=== PATIENT | female | born 1975 | race Caucasian/White ===

== ENCOUNTER → 2017-12-25 | Outpatient (CLI) | payer OTHER ==
[2017-12-25 14:09] LABS: BASO % 0.8 %; BASO ABS # 0.04 K/uL (0-0.2); EOS % 1.5 %; EOS ABS # 0.08 K/uL (0-0.5); HEMATOCRIT 45.7 % (37-47); HEMOGLOBIN 15.5 g/dL (12.0-16.0); IG# 0.02 K/uL (0.00-0.02); LYMPH % 34.6 %; LYMPH ABS # 1.84 K/uL (1.2-3.4); MEAN CELL VOLUME 90.7 fL (80-100); MEAN CORPUSCULAR HEMOGLOBIN 30.8 pg (25-34); MEAN CORPUSCULAR HGB CONC 33.9 g/dl (32-36); MEAN PLATELET VOLUME 11.3 fL (7.4-10.4); MONO % 9.6 %; MONO ABS # 0.51 K/uL (0.11-0.59); NEUT % 53.1 %; NEUT ABS # 2.83 K/uL (1.4-6.5); PLATELET COUNT 297 K/uL (130-400); RED CELL DISTRIBUTION WIDTH CV 12.9 % (11.5-14.5); RED CELL DISTRIBUTION WIDTH SD 42.8 fL (36.4-46.3); WHITE BLOOD COUNT 5.32 K/uL (4.8-10.8)
[2017-12-25 14:25] LABS: BLOOD UREA NITROGEN 18 mg/dl (7-18); CALCIUM 8.8 mg/dl (8.5-10.1); CARBON DIOXIDE 30 mmol/L (21-32); CREATININE 0.97 mg/dl (0.60-1.20); GLUCOSE 79 mg/dl (70-99); POTASSIUM 3.5 mmol/L (3.5-5.1); SODIUM 136 mmol/L (136-145)
== END | disposition home or self-care (01) ==
LOC: C.LABBC 09:37
PROVIDERS: ATTEND Orthopaedic Surgery
DX: Z01.812 Encounter for preprocedural laboratory examination (principal); M75.51 Bursitis of right shoulder

== ENCOUNTER → 2018-01-23 | Day surgery (SDC) | payer OTHER ==
[2018-01-06 07:47] VITALS: Ht 160 cm; Wt 76.4 kg
[~2018-01-23] VITALS: Ht 160 cm; Wt 76.4 kg
[~2018-01-23] MED LIST: ATROPINE SULFATE 0.1 MG/ML 5ML SYR IV PRN; BUPIVACAINE 0.25% 30 ML VIAL ONE; CEFAZOLIN 2000MG IV PUSH 15 ML IV SCH; CITA20TA9 PO; CYCL1SOL OPR; DEXAMETHASONE SOD INJ 4 MG/ML VIAL ONE; DIPH25CA65 PO; EpINEphrine INJ 1MG/ML AMP 1 MG/ML AMP ONE; FENTANYL CITRATE INJ 50 MCG/1 ML 2 ML VIAL IV PRN; FENTANYL CITRATE INJ 50 MCG/1 ML 2 ML VIAL ONE; HYDR-5688 PO; HYDR200T5 PO; HYDROCODONE/ACETAMIN 5/325MG TAB PO PRN; KETO10TA PO; KETOROLAC TROMETHAMINE 30 MG/ML VIAL IV. PRN; LACTATED RINGER'S 1000ML 1,000 ML IV SCH; LIDOCAINE HCL 2% 2 ML VIAL (20MG/ML) ONE; MIDAZOLAM HCL 1 MG/ML 2ML VIAL ONE; MISCCAP80 PO; MTR600X PO; ONDANSETRON INJ 2 MG/ML 2 ML VIAL IV PRN; ONDANSETRON INJ 2 MG/ML 2 ML VIAL ONE; PHENYLEPHRINE HCL INJ 10 MG/ML VIAL ONE; PRED1SUS3 OPL; PRED1SUS3 OPR; PROPOFOL IV EMULSION 10 MG/ML 20 ML VIAL ONE; ROPIVACAINE 0.5% 5 MG/ML 30 ML VIAL ONE; SODIUM CHLORIDE 0.9% 1000ML 1,000 ML IV SCH; THYROID SUPPORT PO; [UNRECOGNIZED DRUG - OTHER] PO
--- NOTE | 2018-01-23 07:50 | History & Physical Bridge - [place] ---
H&P Re-Evaluation Bridge Note: I have examined the patient, reviewed the History & Physical and in the interval since the performance of the History & Physical I have noted the following changes of clinical significance: No changes noted
--- NOTE | 2018-01-23 10:54 | [facility] Post Operative Brief Note ---
Immediate Operative Summary Operative Date January 23, 2018. Pre-Operative Diagnosis Right Shoulder Bursitis, Joint Pain Post-Operative Diagnosis Same with Rotator Cuff Tear Procedure(s) Performed Right Shoulder Arthroscopy With Distal Clavicle Resection, Rotator Cuff Repair, Acromioplasty Surgeon Dr. Wade Physician Relations Specialist Surgeon(s) Guicho Patricia PA-C Estimated Blood Loss 5 ml Findings Consistent with Post-Op Diagnosis Specimens None Anesthesia Type General Regional Complication(s) none Disposition Disposition: Recovery Room / PACU
--- NOTE | 2018-01-23 11:00 | Discharge Instructions-SurgCtr ---
Discharge Instructions Date of Service January 23, 2018. Visit Reason for Visit: Right Shoulder Bursitis, Joint Pain Discharge Discharge Diagnosis / Problem: SAME ABOVE Discharge Goals Goal(s): Decrease discomfort, Improve function Medications Stopped Medications Name(s): no blood thinners Restart Stopped Medication(s): MAY RESTART 01/24/2018 Activity Recommendations Activity Limitations: as noted below Lifting Limitations: until after follow-up appointment Exercise/Sports Limitations: until after follow-up appointment Shower/Bathe: tomorrow Anesthesia . Post Anesthesia Instructions: If you have had General Anesthesia or IV Sedation: * Do not drive today. * Resume driving when surgeon permits. * Do not make important decisions or sign legal documents today. * Call surgeon for: 1. Temperature elevations greater than 101 degrees F. 2. Uncontrollable pain. 3. Excessive bleeding. 4. Persistent nausea and vomiting. 5. Medication intolerance (nausea, vomiting or rash). * For nausea and vomiting use only clear liquids such as: tea, soda, bouillon until nausea subsides, then gradually increase diet as tolerated. * If you have any concerns or questions, call your surgeon's office. If physician is unavailable and it is an emergency, call 911 or go to the nearest emergency room. . Instructions / Follow-Up Instructions / Follow-Up MEDICATIONS: * Resume previous medications unless instructed otherwise by your surgeon. * Always take pain medication on a full stomach or with food to avoid upset stomach. * Do not drink alcohol or drive while taking narcotics. * Ibuprofen or Tylenol may be taken if narcotic not needed. SPECIAL CARE INSTRUCTIONS: __ None _X_ Keep extremity elevated and iced x 48 hours; apply ice 20-30 minutes 8-10 times/day. May remove at night. __ Sling __24 hrs/day __ Remove at night _X_ Shoulder Immobilizer (MAY REMOVE AFTER 48 HOURS ONLY TO SHOWER AND FOR THERAPY) _X_ 24 hrs/day __ Remove at night _X_ Dressing __ Maintain until seen in office, may shower with plastic over site _X_ Remove dressings in 24-48 hours and then may shower _X_ Cover incisions with band-aids after showering __ Do not remove steri-strips Call physician if chills or temperature rises above 102 degrees or pain unrelieved by prescribed pain medications at . . Diet Recommendations Home Diet: no limitations Fluid Restriction: None Procedures Procedures Performed: Right Shoulder Arthroscopy With Distal Clavicle Resection, Rotator Cuff Repair, Acromioplasty Pending Studies Studies pending at discharge: no Work Instructions Return To Work: after follow-up Medical Emergencies . Who to Call and When: Medical Emergencies: If at any time you feel your situation is an emergency, please call 911 immediately. . Non-Emergent Contact Non-Emergency issues call your: Primary Care Provider Call Non-Emergent contact if: you have a fever, temperature is above 101.5 . . "Provider Documentation" section prepared by Rex Patricia. .
[2018-01-23 11:51] VITALS: TEMP 36.6
--- NOTE | 2018-01-23 12:06 | Anesthesia Progress Nt - [facility] ---
Anesthesia Post Op Note Date & Time January 23, 2018 at 12:06 Vital Signs Pain Intensity: 0 Vital Signs Past 12 Hours Date Time Temp Pulse Resp B/P (MAP) Pulse Ox O2 Delivery O2 Flow Rate FiO2 01/23/18 11:51 36.6 93 18 122/80 (94) 99 Room Air 01/23/18 11:28 91 17 99 01/23/18 11:28 91 17 01/23/18 11:25 118/77 01/23/18 11:23 89 13 97 01/23/18 11:23 87 13 01/23/18 11:22 93 21 01/23/18 11:22 91 21 98 01/23/18 11:21 124/75 01/23/18 11:20 36.6 89 16 124/75 98 Room Air 01/23/18 11:18 89 16 98 01/23/18 11:18 88 16 01/23/18 11:15 117/64 01/23/18 11:13 91 19 01/23/18 11:13 89 19 98 01/23/18 11:10 123/78 01/23/18 11:08 87 14 01/23/18 11:08 87 14 100 01/23/18 11:05 112/75 01/23/18 11:03 89 12 100 01/23/18 11:03 89 12 01/23/18 11:00 122/103 01/23/18 10:58 92 116/73 99 01/23/18 10:58 92 01/23/18 10:58 37.2 92 16 116/73 100 Mask 7 01/23/18 09:34 76 16 126/74 (91) 99 Mask 4 01/23/18 08:02 37.0 80 16 110/73 (85) 97 Room Air Notes Mental Status: alert / awake / arousable, participated in evaluation Pt Amnestic to Procedure: Yes Nausea / Vomiting: adequately controlled Pain: adequately controlled Airway Patency, RR, SpO2: stable & adequate BP & HR: stable & adequate Hydration State: stable & adequate Anesthetic Complications: no major complications apparent
[2018-01-23 12:07] VITALS: BP 110/78; PULSE 93; O2SAT 98
--- NOTE | 2018-01-23 13:43 | OPERATIVE REPORT ---
DATE OF OPERATION: 01/23/2018 PREOPERATIVE DIAGNOSES: External impingement and acromioclavicular joint arthritis of the right shoulder. POSTOPERATIVE DIAGNOSES: External impingement, acromioclavicular joint arthritis, and medium size rotator cuff tear. PROCEDURE: Right shoulder diagnostic arthroscopy with limited debridement, distal clavicle resection, acromioplasty, and medium size rotator cuff repair. SURGEON: Dr. Pal Wade. ABSORBER OPERATOR: Rex Patricia PA-C, whose assistance was necessary for positioning the arm and help with arthroscopic instrumentation and closure. ANESTHESIA: General with a right interscalene nerve block. COMPLICATIONS: None. CONDITION: Stable to PACU. INDICATIONS: Ольга is a pleasant 42-year-old female who works for the [email or web address]. She has been having a 3-month history of right shoulder pain. I did a decompression and distal clavicle resection on contralateral side in the past. She did well with that. MRI showed external impingement and AC joint arthritis. After failing conservative treatment, she elected to undergo arthroscopy. On January 23, 2018, she arrived at [facility] for the above procedure. She was seen in the preoperative holding area, and the operative extremity was identified and signed. She was given a preoperative antibiotic and a right interscalene nerve block. She was taken back to the operating room, laid on table in supine position, and put under general anesthesia. She was put into the beachchair position. The right shoulder was prepped and draped in sterile fashion, and timeout was done. The patient's upper extremity was appropriately identified. A scope was introduced in the posterior portal. Diagnostic arthroscopy showed no cartilage damage to the humeral head or the glenoid. There was some fraying of the anterior labrum. The biceps tendon was intact, with the normal size biceps kilo mechanism. There was a tear of about 85% of the articular side of the supraspinatus. This was unexpected. An anterior portal was made. A shaver was used to do a limited debridement of the intraarticular structures. The biceps tendon was pulled into the joint and no additional pathology was identified. The undersurface of the rotator cuff was debrided, and there was enough of the tear to warrant a repair. The scope was then put in the subacromial space. A lateral portal was made. A shaver was used to do a complete subacromial and subdeltoid bursectomy. An ablator was used to tease the coracoacromial ligament off the undersurface of the acromion, and a 5-0 bur was used to create an acromioplasty of a Bigliani type 2 acromion. A shaver was used to remove any excess debris, and attention was turned to the rotator cuff. An additional anterior lateral portal was made, and Dominga cannulas were placed in each lateral portals. The cuff tear was completed from the bursal side. The greater tuberosity was then prepared with a ring curette and a microfracture. The rotator cuff was then repaired with an Arthrex SpeedBridge configuration using 4.75 mm BioComposite SwiveLock suture anchors and FiberTapes. This gave a nice knotless repair. Multiple pictures were taken. Attention was then turned to the distal clavicle. Through the anterior portal, a shaver and ablator were used to skeletonize the distal clavicle. A 5-0 bur was then used to resect the distal 5 mm from the clavicle. Complete resection was checked under direct visualization. The scope was then placed back into the glenohumeral joint, and the articular margin of the rotator cuff had been restored. Pictures were taken. Arthroscopic instruments removed from the shoulder. Portal sites were closed with 3-0 nylon. She was then placed in a soft dressing and a regular arm sling. She was then extubated, transferred to a litter, and taken to the postanesthesia care in stable condition. She tolerated the procedure well. I attest to the content of the Intraoperative Record and any orders documented therein. Any exception s are noted below.
== END | disposition home or self-care (01) ==
LOC: X.SURG 07:41
PROVIDERS: ATTEND Orthopaedic Surgery
DX: M75.41 Impingement syndrome of right shoulder (principal); M19.011 Primary osteoarthritis, right shoulder; M75.101 Unspecified rotator cuff tear or rupture of right shoulder, not specified as traumatic; M06.9 Rheumatoid arthritis, unspecified; Z88.1 Allergy status to other antibiotic agents; Z88.6 Allergy status to analgesic agent; Z98.51 Tubal ligation status; Z98.890 Other specified postprocedural states; Z79.899 Other long term (current) drug therapy; Z90.49 Acquired absence of other specified parts of digestive tract; Z90.89 Acquired absence of other organs

== ENCOUNTER 2019-07-10 07:23 | Observation (INO) ==
[2019-06-26 18:51] LABS: Basophils # (auto) 0.02 K/uL (0-0.2); Basophils % (auto) 0.3 %; Eosinophils % (auto) 1.4 %; Hematocrit (blood only) 39.1 % (37-47); Hemoglobin 13.6 g/dL (12.0-16.0); Immature Granulocytes # (auto) 0.02 K/uL (0.00-0.02); Immature Granulocytes % (auto) 0.3 %; Lymphocytes # (auto) 2.99 K/uL (1.2-3.4); Lymphocytes % (auto) 40.5 %; Mean Corpuscular Hemoglobin 32.9 pg (25-34); Mean Corpuscular Hgb Conc 34.8 g/dL (32-36); Mean Corpuscular Volume 94.4 fL (80-100); Monocytes # (auto) 0.59 K/uL (0.11-0.59); Neutrophils # (auto) 3.67 K/uL (1.4-6.5); Neutrophils % (auto) 49.5 %; Platelet Count 302 K/uL (130-400); RDW Coefficient of Variation 13.4 % (11.5-14.5); RDW Standard Deviation 45.9 fL (36.4-46.3); Red Blood Count 4.14 M/uL (4.2-5.4); White Blood Count 7.39 K/uL (4.8-10.8)
--- NOTE | 2019-07-01 08:59 | Anesthesiology Consultation ---
Date of Service July 01, 2019 Assessment & Plan Chart Review Chart Review: Patient NOT seen in Pre Admission Testing Consults Requested none History Surgery Operation Date: 07/10/19 09:05 Proposed Procedures p C6-C7 Anterior Cervical Discectomy and Fusion with Iliac Crest Bone Graft - Lonny Escobedo DO Height/Weight Height: 5 ft 3 in Weight: 77.111 kg Allergies Allergy/AdvReac Type Severity Reaction Status Date / Time ceftriaxone Allergy Unknown UNCONTROLABLE Verified 06/29/19 10:48 SHAKING, HIVES milk Allergy Unknown PROTEIN IN Verified 06/29/19 10:48 COWS MILK, CONSIPATION/RASH oxycodone Allergy Unknown SICK IN Verified 06/29/19 10:48 STOMACH Medications Home Medications Medication Instructions Recorded Confirmed Last Taken cetirizine [Zyrtec] 10 mg PO QAM 05/23/19 06/29/19 Unknown citalopram 40 mg PO QAM 05/23/19 06/29/19 Unknown folic acid 1 mg PO QAM 05/23/19 06/29/19 Unknown lactobacillus combination no.4 3,000 mmu cells PO QAM 05/23/19 06/29/19 Unknown [Probiotic] lidocaine [Lidoderm] 1 patch TOP DAILY PRN #15 ea 05/23/19 06/29/19 Unknown methotrexate sodium 15 mg PO .SUN 05/23/19 06/29/19 Unknown lcrhbbvl-tud-nfma-FA-lutein 1 tab PO QAM 05/23/19 06/29/19 Unknown [Centrum Silver Women] cyanocobalamin (vitamin B-12) 1,000 mcg PO DAILY 06/29/19 06/29/19 Unknown [Vitamin B-12] Past Medical History Medical History Cervical radiculopathy (Inactive) Degenerative cervical disc (Inactive) Rheumatoid arthritis Uveitis TAKES METHOTREXATE Past Family History Family History Other No significant family history Past Surgical History Surgical History History of arthroscopy of right shoulder ROTATOR CUFF REPAIR History of carpal tunnel release RIGHT AND LEFT WRIST History of tonsillectomy and adenoidectomy Hx of cholecystectomy Hx of colonoscopy Hx of esophagogastroduodenoscopy Hx of hand surgery BITE BY CAT AND INFECTED THUMB JOINT Hx of tubal ligation Hx of wisdom tooth extraction STOP BANG Total 0 Social History Smoking Status: Former smoker Do You Dip or Chew Tobacco: No Smoking End Date: 2008 Hx Alcohol Use: Yes alcohol intake frequency: other Alcohol Intake Frequency Comment: RARE Hx Substance Use: No substance use type: does not use Testing Laboratory Results 06/26/19 16:35 Chest X-Ray Date: 05/23/19 Findings: + NAD
--- NOTE | 2019-07-09 13:14 | History and Physical Report ---
DATE OF ADMISSION: 07/10/2019 CHIEF COMPLAINT: Headaches, arm numbness, weakness, spasms, ongoing since 03/2019, refractory to conservative management. She is miserable. She has a disk protrusion of the cervical spine at C6-C7. PAST MEDICAL HISTORY: Positive for rheumatoid arthritis, depression. PAST SURGICAL HISTORY: Includes shoulder bursitis surgery, cholecystectomy and tubal ligation. MEDICATIONS: Include Plaquenil, Celexa, ibuprofen, Benadryl. SOCIAL HISTORY: Nonsmoker, non-ETOH user. ALLERGIES: PERCOCET AND ROCEPHIN. FAMILY HISTORY: Diabetes. REVIEW OF SYSTEMS: CONSTITUTIONAL: She denies any fevers, sweats, chills, EAR, NOSE AND THROAT: Negative. CARDIOVASCULAR: Denies chest pain, palpitation. MUSCULOSKELETAL: She has muscle weakness, pain, numbness, tingling. OBJECTIVE: GENERAL: She is alert, oriented. She is miserable. VITAL SIGNS: Height 5 feet 3 inches, weight 170 pounds, blood pressure 130/80, pulse 80, respirations 16. HEENT: Pupils react to light and accommodation. Ear, nose and throat clear. CARDIAC: Normal S1, S2. LUNGS: Clear. NEUROLOGIC: She has a Spurling maneuver. She has a Lhermitte sign. She has weakness and paresthesias. PLAN: Includes an ACDF of the cervical spine C6-C7 with iliac crest bone graft.
[~2019-07-10 07:23] MED LIST changes: -ATROPINE SULFATE 0.1 MG/ML 5ML SYR IV PRN; -BUPIVACAINE 0.25% 30 ML VIAL ONE; +CEFAZOLIN 1000MG 1,000 MG/7.5 ML SYR IV SCH; -CEFAZOLIN 2000MG IV PUSH 15 ML IV SCH; -CITA20TA9 PO; -CYCL1SOL OPR; -DEXAMETHASONE SOD INJ 4 MG/ML VIAL ONE; -DIPH25CA65 PO; -EpINEphrine INJ 1MG/ML AMP 1 MG/ML AMP ONE; -FENTANYL CITRATE INJ 50 MCG/1 ML 2 ML VIAL IV PRN; -FENTANYL CITRATE INJ 50 MCG/1 ML 2 ML VIAL ONE; -HYDR-5688 PO; -HYDR200T5 PO; -HYDROCODONE/ACETAMIN 5/325MG TAB PO PRN; -KETO10TA PO; -KETOROLAC TROMETHAMINE 30 MG/ML VIAL IV. PRN; -LACTATED RINGER'S 1000ML 1,000 ML IV SCH; -LIDOCAINE HCL 2% 2 ML VIAL (20MG/ML) ONE; +LR 15ML/HR IV SCH; -MIDAZOLAM HCL 1 MG/ML 2ML VIAL ONE; -MISCCAP80 PO; -MTR600X PO; -ONDANSETRON INJ 2 MG/ML 2 ML VIAL IV PRN; -ONDANSETRON INJ 2 MG/ML 2 ML VIAL ONE; -PHENYLEPHRINE HCL INJ 10 MG/ML VIAL ONE; -PRED1SUS3 OPL; -PRED1SUS3 OPR; -PROPOFOL IV EMULSION 10 MG/ML 20 ML VIAL ONE; -ROPIVACAINE 0.5% 5 MG/ML 30 ML VIAL ONE; +SODIUM CHLORIDE 0.9% 1,000 ML IV SCH; -SODIUM CHLORIDE 0.9% 1000ML 1,000 ML IV SCH; -THYROID SUPPORT PO; -[UNRECOGNIZED DRUG - OTHER] PO
[2019-07-10] MEDS ORDERED: CEFAZOLIN 2,000 MG/15 ML IV PUSH IV ONE (08:52)
--- NOTE | 2019-07-10 08:54 | History & Physical Bridge Note ---
Date of Service July 10, 2019 History & Physical Bridge Note I have examined the patient, reviewed the History & Physical and in the interval since the performance of the History & Physical I have noted the following changes of clinical significance: no changes noted
[2019-07-10] MEDS ORDERED: fentaNYL citrate 100 MCG/2 ML VIAL ONE (09:17)
[2019-07-10] MEDS ORDERED: MIDAZOLAM HCL 1 MG/ML 2ML VIAL ONE (09:17)
[2019-07-10] MEDS ORDERED: GELATIN SPONGE SZ 100 ONE (09:29)
[2019-07-10] MEDS ORDERED: BUPIVACAINE/EPINEPHRINE 0.5% MPF 1:200,000 30 ML VIAL ONE ×2 (09:29→09:35)
[2019-07-10] MEDS ORDERED: THROMBIN FOR SOLN 20000 UNIT KIT ONE (09:30)
[2019-07-10] MEDS ORDERED: BACITRACIN INJ 50,000 UNIT VIAL ONE (09:30)
[2019-07-10] MEDS ORDERED: HYDROmorphone INJ 2 MG/ML SYR/VIAL ONE (10:02)
[2019-07-10] MEDS ORDERED: PROMETHAZINE HCL 12.5 MG in SODIUM CHLORIDE 0.9% 50 ML IV PRN ×2 (10:41→13:41)
[2019-07-10] MEDS ORDERED: ePHEDrine sulfate 50 MG/ML AMP IV PRN (10:41)
[2019-07-10] MEDS ORDERED: ATROPINE SULFATE 0.1 MG/ML 10ML SYR IV PRN (10:41)
[2019-07-10] MEDS ORDERED: ONDANSETRON INJ 2 MG/ML 2 ML VIAL IV PRN ×2 (10:41→13:41)
[2019-07-10] MEDS ORDERED: PROPOFOL IV EMULSION 10 MG/ML 20 ML VIAL IV ONE (11:08)
[2019-07-10] MEDS ORDERED: ONDANSETRON INJ 2 MG/ML 2 ML VIAL ONE (11:08)
[2019-07-10] MEDS ORDERED: ROCURONIUM BROMIDE 10 MG/ML 5 ML VIAL ONE (11:08)
[2019-07-10] MEDS ORDERED: LIDOCAINE HCL 2% 2 ML VIAL/AMP(20MG/ML) INFIL ONE (11:08)
[2019-07-10] MEDS ORDERED: GLYCOPYRROLATE 0.2 MG/ML VIAL ONE (11:08)
[2019-07-10] MEDS ORDERED: NEOSTIGMINE METHYLSULFATE 5 MG/5 ML SYR ONE (11:08)
[2019-07-10] MEDS ORDERED: DEXAMETHASONE SOD INJ 4 MG/ML VIAL ONE (11:08)
--- NOTE | 2019-07-10 11:18 | Fluoroscopy Report ---
INTRAOPERATIVE RADIOGRAPHS CLINICAL HISTORY: C6-C7 spinal fusion. Fluoroscopy time: 7 seconds. FINDINGS: 2 spot fluoroscopic views of the cervical spine are presented. There is postoperative erazo e from anterior spinal fusion, reportedly at C6-C7. The orthopedic hardware appears intact. IMPRESSION: Intraoperative images from C6-C7 spinal fusion as above. Electronically signed by: João Kate M.D. 07/10/2019 11:16 AM
--- NOTE | 2019-07-10 11:32 | Post Operative Brief Note ---
[facility] Immediate Post Op with CF Date of Surgery July 10, 2019 Pre & Post Diagnosis Operation Date: 07/10/19 09:05 Pre-Op Diagnosis: Cord Compression C6-C7 Post-Op Diagnosis: Cord Compression C6-C7 I identified the patient and participated in the time-out.: Yes Procedure Operation Date: 07/10/19 09:05 Actual Procedures p C6-C7 Anterior Cervical Discectomy and Fusion, with Iliac Crest Bone Graft(Not Applicable) - Lonny Escobedo DO Surgeon Lonny Escobedo DO Hose Builder georgi Estimated Blood Loss 10 Findings Consistent with Post-Op Diagnosis Specimens Specimen Description: none per surgeon Drains Cristobal Drain (1/4 inch) Disposition Accompanied Patient To Recovery: Yes Overlapping Procedure I was immediately available: during the entire case.
[2019-07-10] MEDS ORDERED: HYDROmorphone INJ 1 MG/ML SYRINGE ONE ×2 (11:44→12:12)
[2019-07-10] MEDS: fentaNYL citrate 100 MCG/2 ML VIAL IV PRN ×2 (11:44→11:49)
[2019-07-10] MEDS: HYDROmorphone INJ 2 MG/ML SYR/VIAL IV PRN ×4 (11:50→12:15)
--- NOTE | 2019-07-10 12:05 | Operative Report ---
DATE OF OPERATION: 07/10/2019 PREOPERATIVE DIAGNOSIS: Spinal cord compression, C6-C7. POSTOPERATIVE DIAGNOSIS: Spinal cord compression, C6-C7. PROCEDURE: Anterior cervical discectomy and fusion, C6-C7. SURGEON: Lonny Escobedo DO SCHOOL PHOTOGRAPH EDITOR: Pal Richardson PA-C. COMPLICATIONS: Zero. BLOOD LOSS: 10 mL. DESCRIPTION OF PROCEDURE: The patient was identified in preop holding area, brought back to the operating room. She was placed in 5 pounds of traction, scrubbed first, prepped and draped sterile. Formal timeout provided. We made a fascial skin incision and fascial incision, carefully got down on the anterior aspect of the cervical spine. We marked the C6-C7 the cross table lateral radiograph and commenced with surgery. I made a incision into the disc with 15 scalpel blade, I used pituitaries and curettes and completely cleaned out the disc material. I was back in through the posterior longitudinal ligament. I could see the entire discectomy site. It was free of obstruction. We irrigated thoroughly. I went to the left iliac crest, made a skin incision and fascial incision, harvested and iliac crest bone structural autograft for this area. This was placed into the vacated discectomy site at the C6-C7. It measured approximately 7-8 mm in height, tapered to 7 mm, approximately 15 mm in depth and approximately 15 mm left to right. The fit was anatomic. We put up a 14 mm plate by [employer], locked this into place. The x-rays were excellent, irrigated and closed. The patient returned to PACU improved, stable condition. There were no complications. Sponge and needle count correct. Bone graft used was structural autograft and implants used by [employer]. I attest to the content of the Intraoperative Record and any orders documented therein. Any exception s are noted below.
--- NOTE | 2019-07-10 12:48 | Anesthesiology Progress Note ---
Date of Service July 10, 2019 Anesthesia Post Procedure Vital Signs Vital Signs: Temp Pulse Pulse Resp BP Pulse Ox 07/10/19 12:45 36.9 C 101 H 16 105/73 97 07/10/19 12:35 101 H 16 102/74 96 07/10/19 12:25 98 H 16 98/75 L 96 07/10/19 12:15 37.0 C 101 H 16 120/74 96 07/10/19 12:05 99 H 16 104/72 94 07/10/19 11:55 110 H 16 128/83 94 07/10/19 11:45 110 H 16 141/83 H 94 07/10/19 11:36 36.0 C L 122 H 16 140/84 98 07/10/19 07:51 36.6 C 92 H 18 126/86 97 Pain Intensity Head: Pain Intensity: 7 Transfer of Care Handoff Completed per policy Notes Mental Status: alert / awake / arousable and participated in evaluation Patient Amnestic to Procedure: Yes Nausea / Vomiting: adequately controlled Pain: adequately controlled Airway Patency, RR, SpO2: stable & adequate BP & HR: stable & adequate Hydration State: stable & adequate Anesthetic Complications: no major complications apparent and Pt Satisfied with anesthetic care
[2019-07-10] MEDS ORDERED: SOD PHOSPHATE/SOD BIPHOSPHATE ENEMA 132 ML BTL PR PRN (13:41)
[2019-07-10] MEDS ORDERED: RACEPINEPHRINE 2.25% NEBU SOLN 0.5 ML VIAL INH PRN (13:41)
[2019-07-10] MEDS ORDERED: ACETAMINOPHEN 1,000 MG/100 ML VIAL IV PRN (13:41)
[2019-07-10] MEDS ORDERED: FAMOTIDINE 20 MG TAB PO PRN (13:41)
[2019-07-10] MEDS ORDERED: HYDROmorphone INJ 0.5 MG/0.5 ML SYR IV PRN (13:41)
[2019-07-10] MEDS ORDERED: DEXAMETHASONE SOD PHOSPHATE 8 MG in SYRINGE 0 ML IV PRN (13:41)
[2019-07-10] MEDS ORDERED: NALOXONE HCL 0.4 MG/1 ML VIAL/CARP IV PRN (13:41)
[2019-07-10] MEDS ORDERED: METOCLOPRAMIDE HCL INJ 5 MG/ML 2 ML VIAL IV PRN (13:41)
[2019-07-10] MEDS ORDERED: ONDANSETRON 4 MG TAB PO PRN (13:41)
[2019-07-10] MEDS ORDERED: ALUMINUM/MAGNESIUM SUSP 30 ML UDC PO PRN (13:41)
[2019-07-10] MEDS ORDERED: LORazepam 0.5 MG/1 ML VIAL IV PRN (13:41)
[2019-07-10] MEDS ORDERED: DO NOT ADMINISTER PNEUMOCOCCAL VACCINE PRN (13:41)
[2019-07-10] MEDS ORDERED: MAGNESIUM HYDROXIDE SUSP 30 ML UDC PO PRN (13:41)
[2019-07-10] MEDS ORDERED: DO NOT ADMINISTER FLU VACCINE PRN (13:41)
[2019-07-10] MEDS ORDERED: KETOROLAC 30 MG/ML VIAL IV SCH (14:00)
[2019-07-10] MEDS: SODIUM CHLORIDE 0.9% 1000ML 1,000 ML IV SCH (14:03)
[2019-07-10] MEDS: CEFAZOLIN 2000MG 2,000 MG/15 ML SYR IV SCH (17:17)
[2019-07-10] MEDS: TRAMADOL HCL 50 MG TABLET PO PRN (19:20)
[2019-07-10] MEDS ORDERED: DOCUSATE SODIUM/SENNA 50/8.6MG TAB PO SCH (21:00)
[2019-07-11] MEDS: CEFAZOLIN 2000MG 2,000 MG/15 ML SYR IV SCH (02:10)
[2019-07-11] MEDS: SODIUM CHLORIDE 0.9% 1000ML 1,000 ML IV SCH (02:10)
[2019-07-11] MEDS ORDERED: CETIRIZINE HCL 10 MG TABLET PO SCH (09:00)
[2019-07-11] MEDS ORDERED: CITALOPRAM 40 MG TAB PO SCH (09:00)
[2019-07-11] MEDS ORDERED: FOLIC ACID 1 MG TAB PO SCH (09:00)
--- NOTE | 2019-07-11 09:45 | Discharge Summary ---
She is alert and oriented, minimal complaints of pain, some hoarseness and some swallowing difficulty. No fevers, sweats, chills. Neurologically intact, up ambulatory. ASSESSMENT: Single level ACDF cervical spine C6-C7. PLAN: We will discharge home later on this morning. Instructions, precautions collar. Dressing changes. She has instructions and precautions at home here in the hospital and voices no need for medication.
[2019-07-11 10:46] VITALS: TEMP 98.6
[2019-07-11] MEDS: POLYETHYLENE (MIRALAX) 17 GM PACK PO SCH ×2 (12:11→12:12)
[2019-07-11 12:16] VITALS: BP 119/81; PULSE 84; O2SAT 97
[2019-07-11] MEDS: TRAMADOL HCL 50 MG TABLET PO PRN (12:21)
[2019-07-12] MEDS ORDERED: metHOTREXate sodium 2.5 MG TAB PO SCH (09:00)
[2019-07-12] MEDS ORDERED: BISACODYL 10 MG SUPP PR PRN (11:41)
== END 2019-07-11 14:29 | disposition home or self-care (01) ==
LOC: 3E 07:23 → ASU 07:23